=== PATIENT | male | born 1935 | race Two or more races ===

== ENCOUNTER 2017-08-27 13:39 | Inpatient (IN) | payer MEDICARE, MEDICAID ==
[2017-08-27] MEDS ORDERED: NS 0.9% 1000 ML* 1,000 ML IV ONE (16:06)
[2017-08-27 16:26] LABS: Hematocrit 36 % (42-52); Hemoglobin 12.1 g/dl (14.0-18.0); Mean Corpuscular HGB Conc 34 g/dl (31-36); Mean Corpuscular Hemoglobin 32 pg (27-31); Mean Corpuscular Volume 95 fL (80-94); Mean Platelet Volume 8 um3 (7.4-10.4); Red Blood Count 3.81 10^6/ul (4.0-5.4); Red Cell Distribution Width 14 % (10.5-15); White Blood Count 7.9 10^3/ul (3.5-10.8)
[2017-08-27 16:47] LABS: Troponin I 0.04 ng/mL (<0.04)
[2017-08-27 16:48] LABS: BUN/Creatinine Ratio 19.3 (8-20); C Reactive Protein 1.39 mg/L (< 5.00); Calcium 9.6 mg/dL (8.6-10.3); EGFR African American 65.1 (>60); EGFR Non-African American 50.6 (>60); Globulin 3.2 g/dL (2-4); Magnesium 1.9 mg/dL (1.9-2.7); Total Bilirubin 0.3 mg/dL (0.2-1.0); Total Protein 7.2 g/dL (6.4-8.9)
[2017-08-27 16:49] LABS: Potassium 5.8 mmol/L (3.5-5.0)
[2017-08-27] MEDS ORDERED: Ondansetron INJ* 2 MG/ML VIAL IV SCH (17:00)
[2017-08-27 17:18] LABS: TSH (Thyroid Stimulating Horm) 2.2 mcIU/mL (0.34-5.60)
[2017-08-27] MEDS ORDERED: Dextrose 50% VIAL 50 ml IV PRN (17:19)
[2017-08-27] MEDS ORDERED: Insulin REGULAR(*) 1 UNITS UNIT IV PUSH ONE (17:19)
[2017-08-27] MEDS ORDERED: Dextrose 50% Syringe 50 ML* 25 GM/50 ML SYRINGE IV PUSH ONE (18:00)
[2017-08-27 19:10] LABS: Urine Bilirubin Negative (Negative); Urine Glucose 1+(50 mg/dL) (Negative); Urine Nitrite Negative (Negative)
[2017-08-27 19:35] LABS: Troponin I 0.04 ng/mL (<0.04)
[2017-08-27 19:38] LABS: Potassium 4.5 mmol/L (3.5-5.0)
[2017-08-27] MEDS ORDERED: Albuterol HFA INHALER* 8 gm MDI INH PRN (22:29)
[2017-08-27] MEDS ORDERED: Melatonin (NF) 3 MG TAB PO PRN (22:33)
[2017-08-27] MEDS ORDERED: Acetaminophen TAB* 325 MG PO PRN (22:33)
[2017-08-27] MEDS ORDERED: Ondansetron INJ* 2 MG/ML VIAL IV PRN (22:33)
--- NOTE | 2017-08-27 22:36 | HP ---
H&P (Free Text) History and Physical: PCP: Ricky Funk MD Cardiology: Verna Magallon MD Date/Time: 08/27/2017 2436 CC: abnormal labs HPI: Mr Velasquez is an 81YO male HX DM2,chronic diastolic HF, HTN, & HLD who was at his PCP's office today when labs revealed an elevated serum potassium for which he was referred to [facility]. He denies any complaints, specifically no chest pain, SOB, N/V, sweats, light-headedness, or palpitations. Upon arrival, his K was confirmed elevated at 5.8. His ECG while not showing peaked T-waves was notably abnormal with a biphasic T in V3 and T-wave inversions in V4-6. Troponin was 0.04. The only comparison ECG was from >10 years ago and so Verna Magallon MD cardiology was consulted who was able to find an ECG from ~1 year ago revealing the T-wave changes to be new. As such, he recommended overnight observation and he will consult in the AM. PMedHx DM2 chronic diastolic HF HTN HLD DVT off anticoagulation ARTEMIO glaucoma BPH L Espinoza's palsy Ambulatory Orders Brimonidine P 0.15%(NF) [Alphagan P 0.15%(NF)] 1 drop BOTH EYES BEDTIME Cyanocobalamin INJ * [Vitamin B12 INJ *] 1,000 mcg IM MONTHLY 03/05/14 Lisinopril TAB* [Prinivil TAB 10 MG*] 10 mg PO DAILY 03/05/14 Pilocarpine 4% OPTH.MINERVA* 1 drop BOTH EYES QID 03/05/14 Tamsulosin CAP* [Flomax CAP*] 0.4 mg PO DAILY 03/05/14 metFORMIN* [Glucophage 1000 MG TAB *] 1,000 mg PO 0800,1700 03/05/14 Budesonide/Formote 160/4.5(NF) [Symbicort 160/4.5 (NF)] 2 puff INH BID 09/25/16 Multiple Vitamins W/ Minerals [Multivitamin Men] 1 tab PO DAILY 09/25/16 Potassium Chlor TAB* [Potassium Chlor TAB 20 MEQ*] 20 meq PO DAILY 09/25/16 Travoprost Z 0.004% OPHTH (NF) [Travatan Z 0.004% OPTH (NF)] 1 drop BOTH EYES BEDTIME 09/25/16 Albuterol inh POWDER (NF) [Proair Respiclick] 2 puff INH Q6H PRN 08/27/17 Carbonyl Iron [Ferretts Chewable Iron] 325 mg PO BID 08/27/17 Chlorthalidone TAB* [Hygroton TAB*] 12.5 mg PO .3 TIMES A WEEK 08/27/17 Magnesium Oxide TAB* [MagOx 400 TAB*] 400 mg PO DAILY 08/27/17 Spironolactone TAB* [Aldactone TAB*] 25 mg PO DAILY 08/27/17 Allergies Atorvastatin [From Lipitor] Adverse Reaction (Intermediate, Verified 03/08/14 08 :18) GI Upset PSurgHx B TKA OU cataract extractions SocHx: denies tobacco and recreational drugs, rare alcohol; lives with his ; retired corporate accountant; full code status FamHx: positive for HTN, HLD, DM2 ROS: as above, otherwise reviewed and all were negative vitals: Vital Signs Temp 36.6 C 08/28/17 00:14 Pulse 63 08/28/17 00:14 Resp 18 08/28/17 00:14 BP 133/74 08/28/17 00:14 Pulse Ox 99 08/28/17 00:14 Intake & Output 08/27/17 08/27/17 08/28/17 11:59 23:59 11:59 Weight 102.058 kg Constitutional: NAD, normally developed, obese [place] male HEENM: atraumatic; sclera/conjunctiva: non-icteric/mod-sev B injection; blephara : prominent L blepharospasm; hearing: clinically mod/sev decreased; oropharynx: clear, mucosa moist Neck: soft tissue: non-tender; thyroid: normal Pulmonary: clear to auscultation bilaterally, good aeration, no accessory muscle use CV: RR/RR, normal S1S2, no carotid bruit, no jugular venous distention, 2+ B DP/ PT, 1+ RLE/1-2+ LLE edema Abdominal: soft, non-distended, non-tender, no rebound/guarding/rigidity, normoactive bowel sounds, no hepatosplenomegaly or masses, no costovertebral angle tenderness Musculoskeletal: general: grossly intact Integumental: normal appearance and texture of exposed skin Psychiatric orientation: AA&O to PPS affect: calm mood: cooperative eye contact: fair to good content: reliable responses: timely insight: good Testing: Lab Results 08/27/17 08/27/17 08/27/17 Range/Units 16:07 16:07 18:55 WBC 7.9 (3.5-10.8) 10^3/ul RBC 3.81 L (4.0-5.4) 10^6/ul Hgb 12.1 L (14.0-18.0) g/dl Hct 36 L (42-52) % MCV 95 H (80-94) fL MCH 32 H (27-31) pg MCHC 34 (31-36) g/dl RDW 14 (10.5-15) % Plt Count 221 (150-450) 10^3/ul MPV 8 (7.4-10.4) um3 Neut % (Auto) 55.9 (38-83) % Lymph % (Auto) 30.5 (25-47) % [place] % (Auto) 8.8 (1-9) % Eos % (Auto) 4.3 (0-6) % Baso % (Auto) 0.5 (0-2) % Absolute Neuts (auto) 4.4 (1.5-7.7) 10^3/ul Absolute Lymphs (auto) 2.4 (1.0-4.8) 10^3/ul Absolute Monos (auto) 0.7 (0-0.8) 10^3/ul Absolute Eos (auto) 0.3 (0-0.6) 10^3/ul Absolute Basos (auto) 0 (0-0.2) 10^3/ul Absolute Nucleated RBC 0 10^3/ul Nucleated RBC % 0 Sodium 137 (133-145) mmol/L Potassium 5.8 H (3.5-5.0) mmol/L Chloride 109 (101-111) mmol/L Carbon Dioxide 24 (22-32) mmol/L Anion Gap 4 (2-11) mmol/L BUN 26 H (6-24) mg/dL Creatinine 1.35 H (0.67-1.17) mg/dL Est GFR ( Amer) 65.1 (>60) Est GFR (Non-Af Amer) 50.6 (>60) BUN/Creatinine Ratio 19.3 (8-20) Glucose 91 (70-100) mg/dL POC Glucose (mg/dL) (70-100) mg/dL Calcium 9.6 (8.6-10.3) mg/dL Magnesium 1.9 (1.9-2.7) mg/dL Total Bilirubin 0.30 (0.2-1.0) mg/dL AST 18 (13-39) U/L ALT 15 (7-52) U/L Alkaline Phosphatase 39 (34-104) U/L Troponin I 0.04 H* (<0.04) ng/mL C-Reactive Protein 1.39 (< 5.00) mg/L Total Protein 7.2 (6.4-8.9) g/dL Albumin 4.0 (3.2-5.2) g/dL Globulin 3.2 (2-4) g/dL Albumin/Globulin Ratio 1.3 (1-3) TSH 2.20 (0.34-5.60) mcIU/mL Urine Color Straw Urine Appearance Clear Urine pH 5.0 (5-9) Ur Specific [place] 1.011 (1.010-1.030) Urine Protein Negative (Negative) Urine Ketones Negative (Negative) Urine Blood Negative (Negative) Urine Nitrate Negative (Negative) Urine Bilirubin Negative (Negative) Urine Urobilinogen Negative (Negative) Ur Leukocyte Esterase Negative (Negative) Urine Glucose 1+(50 mg/dl) H (Negative) 08/27/17 08/27/17 Range/Units 19:04 23:05 WBC (3.5-10.8) 10^3/ul RBC (4.0-5.4) 10^6/ul Hgb (14.0-18.0) g/dl Hct (42-52) % MCV (80-94) fL MCH (27-31) pg MCHC (31-36) g/dl RDW (10.5-15) % Plt Count (150-450) 10^3/ul MPV (7.4-10.4) um3 Neut % (Auto) (38-83) % Lymph % (Auto) (25-47) % [place] % (Auto) (1-9) % Eos % (Auto) (0-6) % Baso % (Auto) (0-2) % Absolute Neuts (auto) (1.5-7.7) 10^3/ul Absolute Lymphs (auto) (1.0-4.8) 10^3/ul Absolute Monos (auto) (0-0.8) 10^3/ul Absolute Eos (auto) (0-0.6) 10^3/ul Absolute Basos (auto) (0-0.2) 10^3/ul Absolute Nucleated RBC 10^3/ul Nucleated RBC % Sodium (133-145) mmol/L Potassium 4.5 (3.5-5.0) mmol/L Chloride (101-111) mmol/L Carbon Dioxide (22-32) mmol/L Anion Gap (2-11) mmol/L BUN (6-24) mg/dL Creatinine (0.67-1.17) mg/dL Est GFR ( Amer) (>60) Est GFR (Non-Af Amer) (>60) BUN/Creatinine Ratio (8-20) Glucose (70-100) mg/dL POC Glucose (mg/dL) 190 H (70-100) mg/dL Calcium (8.6-10.3) mg/dL Magnesium (1.9-2.7) mg/dL Total Bilirubin (0.2-1.0) mg/dL AST (13-39) U/L ALT (7-52) U/L Alkaline Phosphatase (34-104) U/L Troponin I 0.04 H* (<0.04) ng/mL C-Reactive Protein (< 5.00) mg/L Total Protein (6.4-8.9) g/dL Albumin (3.2-5.2) g/dL Globulin (2-4) g/dL Albumin/Globulin Ratio (1-3) TSH (0.34-5.60) mcIU/mL Urine Color Urine Appearance Urine pH (5-9) Ur Specific [place] (1.010-1.030) Urine Protein (Negative) Urine Ketones (Negative) Urine Blood (Negative) Urine Nitrate (Negative) Urine Bilirubin (Negative) Urine Urobilinogen (Negative) Ur Leukocyte Esterase (Negative) Urine Glucose (Negative) ECG, personally reviewed: 1st degree AV block bradycardia rate 52, biphasic T in V3 and T-wave inversions in V4-6 Impression: 81M HX DM2, chronic diastolic HF, HTN, HLD presents with asymptomatic hyperKalemia 2nd concomitant lisinopril, spironolactone, & potassium supplementation adequately managed in ED; however, with incidental finding of newly abnormal ECG and elevated troponin DIAGNOSIS & PLAN Primary abnormal ECG & elevated troponin : ? etiology : Verna Magallon MD consulted : telemetry : trend troponin : ECHO in AM : supplemental oxygen : supportive care Secondary DM2 : A1c 6.2, current : NPO after midnight : correctional insulin : hold metformin chronic diastolic HF : daily weights : strict I&Os HTN : review meds once reconciled HLD : review meds once reconciled HX DVT : off anticoagulation glaucoma : review meds once reconciled BPH : review meds once reconciled Admission Rational: observation for abnormal ECG & elevated troponin DVTp: heparin SQ Code Status: full HCP:
--- NOTE | 2017-08-27 22:38 | ED ---
Yfn Atkins Abhishek, scribed for Didier Baker MD on 08/27/17 at 2106 . Progress - Progress Note Progress Note: new t wave inversions seen on ekg, I spoke with Dr. Magallon who agreed with obs admission. pt remains asymptomatic with normalized K. troponin level stable. denies pain, i spoke with family who agrees with plan. - EKG/XRAY/CT Comments: Sinus bradycardia, 53 bpm, Abnormal T wave inversion laterally and anterior - Consult/PCP Time Called: 21:30 Consult/PCP: Dr. Magallon - Additional EKG/XRAY/Consults EKG #2: NSR Comments: t wave inversions in anteror/lateral leads. no st segment changes. Re-Evaluation - Re-Evaluation 2021 Change: Unchanged Course/Dx - Diagnoses Provider Diagnoses: Hyperkalemia, Increase troponin , Acute electrocardiogram changes - Provider Notifications Discussed Care Of Patient With: Brien Parker Instructed by Provider To: Admit As Observation The documentation as recorded by the Yfn acevedo Abhishek accurately reflects the service I personally performed and the decisions made by me, Didier Baker MD.
[2017-08-28] MEDS: NS 0.9% 1000 ML* 1,000 ML IV SCH ×2 (00:32→20:55)
[2017-08-28] MEDS: Latanoprost 0.005%* 2.5 ml BTL BOTH EYES SCH ×2 (01:26→20:30)
[2017-08-28] MEDS: Insulin LISPRO* 1 UNITS UNIT SUBCUT SCH ×6 (03:35→20:28)
[2017-08-28] MEDS: Omeprazole CAP* 20 MG PO SCH (06:16)
[2017-08-28 07:04] LABS: Troponin I 0.04 ng/mL (<0.04)
[2017-08-28 07:08] LABS: Calcium 9.5 mg/dL (8.6-10.3); EGFR African American 73.1 (>60); EGFR Non-African American 56.9 (>60)
[2017-08-28 07:12] LABS: Potassium 5.1 mmol/L (3.5-5.0)
[2017-08-28] MEDS ORDERED: Chlorthalidone TAB* 50 MG PO SCH (09:00)
[2017-08-28] MEDS: Mometasone/Formoter 200/5 MDI INH SCH ×2 (09:05→20:16)
[2017-08-28] MEDS: Docusate CAP* 100 MG PO SCH ×2 (09:18→20:27)
[2017-08-28] MEDS: Magnesium Oxide TAB* 400 MG PO SCH (09:18)
[2017-08-28] MEDS: Tamsulosin CAP* 0.4 MG PO SCH (09:18)
[2017-08-28] MEDS: Lisinopril TAB* 10 MG PO SCH (09:18)
[2017-08-28] MEDS: Spironolactone TAB* 25 MG PO SCH (09:18)
[2017-08-28] MEDS: PILOCARPINE 4% BOTH EYES SCH ×4 (09:19→20:25)
[2017-08-28] MEDS: OPTH BOTH EYES SCH ×4 (09:19→20:25)
--- NOTE | 2017-08-28 13:28 | PN ---
Cardiology Progress Note Full dictated note to follow. Pt seen and examined today 08/28/17. No complaints by the patient, he was admitted for an elevated potassium level on routine labwork. Troponins 0.04 X 3, abnormal ECG, new findings with inverted and biphasic T waves in the precordial leads. CAD risks. Renal insufficiency. Plan: myoview stress test, ordered.
--- NOTE | 2017-08-28 15:55 | ECHO ---
Patient: RENETTA PAZ [facility] Rec#: [id number] : 1935 Date: 08/28/2017 Age: 81y Height: 172.72 cm / 68.0 in Weight: 102.06 kg / 224.9 lbs Sex: M BSA: 2.15 Room#: [facility] Admit Date#: 08/27/2017 Type: Inpatient Referring: Brien Parker MD Reading: Analy Stephen MD [place]ra[place] Facilitator: Leticia Willingham RDCS,RDMS CC: ROLLY CEDILLO Transthoracic Echocardiogram Indication: Abnormal EKG BP: 129/66 HR: 61 Rhythm: NSR Findings History: CHF, HTN, HLD, DVT, DM Technical Comments: The study quality is fair. The study is technically limited due to poor parasternal windows. Left Ventricle: The left ventricular chamber size is normal. Mild concentric left ventricular hypertrophy is observed. Basal interventricular septum shows moderate thickening. Global left ventricular wall motion and contractility are within normal limits. The estimated ejection fraction is 55-60%. Abnormal left ventricular diastolic filling is observed, consistent with impaired relaxation. Left Atrium: The left atrium is mild to moderately dilated. Right Ventricle: The right ventricular chamber size and systolic function are within normal limits. Right Atrium: The right atrium is mildly dilated. Aortic Valve: The aortic valve structure is not well visualized. There is no evidence of aortic valve thickening. There is mild aortic regurgitation. There is no evidence of aortic stenosis. Mitral Valve: The mitral valve leaflets appear normal. There is no evidence of mitral regurgitation. There is no evidence of mitral stenosis. Tricuspid Valve: The tricuspid valve leaflets are normal. There is trace tricuspid regurgitation. Unable to estimate the right ventricular systolic pressure. Pulmonic Valve: The pulmonic valve structure is not well visualized. Pericardium: There is no significant pericardial effusion. Aorta: There is mild dilatation of the ascending aorta. There is no dilatation of the aortic arch. There is moderate dilatation of the aortic root. Pulmonary Artery: The main pulmonary artery is not well visualized. Venous: The inferior vena cava appears normal in size. There is a greater than 50% respiratory change in the inferior vena cava dimension. Conclusions Mild concentric left ventricular hypertrophy is observed. Global left ventricular wall motion and contractility are within normal limits. The estimated ejection fraction is 55-60%. Abnormal left ventricular diastolic filling is observed, consistent with impaired relaxation. The right ventricular chamber size and systolic function are within normal limits. There is mild aortic regurgitation. There is trace tricuspid regurgitation. There is mild dilatation of the ascending aorta, 3.6 cm. Compared with prior echo of 09/14/16, no significant changes. Measurements Name Value Normal Range RVIDd (AP) 2D 2.5 cm (0.9 - 2.6) RVDdMajor (2D) 3.3 cm (2.2 - 4.4) RAd ISD 4CH 5.6 cm (3.4 - 4.9) RA (A4C)W 3.3 cm (2.9 - 4.6) IVSd (2D) 1.8 cm (0.6 - 1) LVPWd (2D) 1.3 cm (0.6 - 1) LVIDd (2D) 3.8 cm (3.6 - 5.4) LVIDs (2D) 2 cm - LV FS (2D) 46 % (25 - 45) Aortic Annulus 2.5 cm (1.4 - 2.6) Ao root diameter (2D) 4.3 cm (2.1 - 3.5) Ascending Ao 3.6 cm (2.1 - 3.4) Aortic arch 3.4 cm (1.8 - 3.4) LA dimension (AP) 2D 2.9 cm (2.3 - 3.8) LAd ISD 4CH 6.4 cm (2.9 - 5.3) LA ISD 4CH W 4.6 cm (2.5 - 4.5) Name Value Normal Range LA ESV SP 4CH (A/L) 53.51 ml - LA ESV SP 2CH (A/L) 60.17 ml - LA ESV BP (A/L) 64.23 ml - LA ESV BP (A/L) index 30 ml/m2 - LA ESV SP 4CH (MOD) 50.62 ml - LA ESV SP 2CH (MOD) 55.94 ml - Name Value Normal Range MV E-wave Vmax 0.6 m/sec - MV deceleration time 244 msec - MV A-wave Vmax 0.8 m/sec - MV E:A ratio 0.8 ratio - P. vein S-wave Vmax 0.5 m/sec - P. vein D-wave Vmax 0.2 m/sec - P. vein S:D Vmax ratio 2.1 ratio - P. vein A-wave duration 90 msec - LV septal e' Vmax 0.04 m/sec - LV lateral e' Vmax 0.05 m/sec - LV E:e' septal ratio 15 ratio - LV E:e' lateral ratio 12 ratio - Name Value Normal Range AV Vmax 1.4 m/sec - AV VTI 26 cm - AV peak gradient 8 mmHg - AV mean gradient 3.8 mmHg - LVOT Vmax 1.1 m/sec - LVOT VTI 24.2 cm - LVOT peak gradient 5 mmHg - LVOT mean gradient 2.6 mmHg - BELINDA Vmax 0.4 m/sec - Name Value Normal Range RAP 8 mmHg - IVC diameter 1.6 cm - Name Value Normal Range PV Vmax 0.5 m/sec - PV peak gradient 1 mmHg -
[2017-08-28] MEDS ORDERED: Brimonidine P 0.15%(NF) OPH SOL 5 ML BTL BOTH EYES SCH (21:00)
--- NOTE | 2017-08-28 21:48 | PN ---
Subjective Date of Service: 08/28/17 Interval History: Pt without complaint. Denies chest pain or SOB. Attests Dr. Magallon had cut his chlorthalidone to 12.5mg MWF from 25mg since circa Sep 2016. Has had multiple BMPs since without hyperkalemia. Never smoker, living in [place] with w/ son and daughter in law. Trops 0.04, 0.04, 0.04. Objective Active Medications: Acetaminophen (Tylenol Tab*) 650 mg PO Q6H PRN PRN Reason: FEVER/PAIN Albuterol (Ventolin Hfa Inhaler*) 2 puff INH Q6H PRN PRN Reason: SHORTNESS OF BREATH Last Admin: 08/28/17 20:23 Dose: 2 puff Brimonidine Tartrate (Alphagan P 0.15%(Nf)) 1 drop BOTH EYES BEDTIME COUNTS INCLUDE 234 BEDS AT THE [facility] Last Admin: 08/28/17 20:29 Dose: Not Given Chlorthalidone (Hygroton Tab*) 12.5 mg PO MoWeFr@0900 COUNTS INCLUDE 234 BEDS AT THE [facility] Last Admin: 08/28/17 09:18 Dose: 12.5 mg Docusate Sodium (Colace Cap*) 200 mg PO BID COUNTS INCLUDE 234 BEDS AT THE [facility] Last Admin: 08/28/17 20:27 Dose: Not Given Sodium Chloride (Ns 0.9% 1000 Ml*) 1,000 mls @ 50 mls/hr IV PER RATE COUNTS INCLUDE 234 BEDS AT THE [facility] Last Admin: 08/28/17 20:55 Dose: 50 mls/hr Insulin Human Lispro (Humalog*) 0 units SUBCUT FS Q4 ICU JOSE PRN Reason: Protocol Last Admin: 08/28/17 20:28 Dose: 1 unit Latanoprost (Xalatan 0.005%*) 1 drop BOTH EYES BEDTIME JOSE PRN Reason: Protocol Last Admin: 08/28/17 20:30 Dose: 1 drop Lisinopril (Prinivil Tab*) 10 mg PO DAILY COUNTS INCLUDE 234 BEDS AT THE [facility] Last Admin: 08/28/17 09:18 Dose: 10 mg Magnesium Oxide (Magox 400 Tab*) 400 mg PO DAILY COUNTS INCLUDE 234 BEDS AT THE [facility] Last Admin: 08/28/17 09:18 Dose: 400 mg Melatonin (Melatonin (Nf)) 3 mg PO BEDTIME PRN; Protocol PRN Reason: Sleep Mometasone Furoate/Formoterol Fumar (Dulera 200/5 Mdi*) 2 puff INH BID JOSE PRN Reason: Protocol Last Admin: 08/28/17 20:16 Dose: 2 puff Omeprazole (Prilosec Cap*) 20 mg PO DAILY@0600 COUNTS INCLUDE 234 BEDS AT THE [facility] Last Admin: 08/28/17 06:16 Dose: 20 mg Ondansetron HCl (Zofran Inj*) 4 mg IV Q6H PRN PRN Reason: NAUSEA Pilocarpine HCl (Pilocarpine 4% Opth.Shani*) 1 drop BOTH EYES QID COUNTS INCLUDE 234 BEDS AT THE [facility] Last Admin: 08/28/17 20:25 Dose: 1 drop Spironolactone (Aldactone Tab*) 25 mg PO DAILY COUNTS INCLUDE 234 BEDS AT THE [facility] Last Admin: 08/28/17 09:18 Dose: 25 mg Tamsulosin HCl (Flomax Cap*) 0.4 mg PO DAILY COUNTS INCLUDE 234 BEDS AT THE [facility] Last Admin: 08/28/17 09:18 Dose: 0.4 mg Vital Signs 08/28/17 08/28/17 08/28/17 15:28 19:31 20:18 Temperature 98.1 F 98.0 F Pulse Rate 59 64 Respiratory 16 20 Rate Blood Pressure 108/53 118/65 (mmHg) O2 Sat by Pulse 99 98 98 Oximetry Oxygen Devices in Use Now: None Appearance: NAD Eyes: No Scleral Icterus, PERRLA Ears/Nose/Mouth/Throat: Mucous Membranes Moist Neck: NL Appearance and Movements; NL JVP Respiratory: Symmetrical Chest Expansion and Respiratory Effort, Clear to Auscultation Cardiovascular: NL Sounds; No Murmurs; No JVD, RRR, No Edema Abdominal: NL Sounds; No Tenderness; No Distention Extremities: No Edema, No Clubbing, Cyanosis Skin: No Rash or Ulcers, No Nodules or Sclerosis Neurological: Alert and Oriented x 3, NL Sensation, NL Muscle Strength and Tone Result Diagrams: 08/27/17 16:07 08/28/17 05:39 Additional Lab and Data: ALLERGIES Atorvastatin [From Lipitor] Adverse Reaction (Intermediate, Verified 03/08/14 08 :18) GI Upset Laboratory Results - last 24 hr 08/27/17 08/28/17 08/28/17 23:05 03:18 05:39 Sodium 138 Potassium 5.1 H Chloride 108 Carbon Dioxide 24 Anion Gap 6 BUN 22 Creatinine 1.22 H Est GFR ( Amer) 73.1 Est GFR (Non-Af Amer) 56.9 BUN/Creatinine Ratio 18.0 Glucose 96 POC Glucose (mg/dL) 190 H 105 H Calcium 9.5 Troponin I 0.04 H* 08/28/17 08/28/17 08/28/17 06:17 12:10 16:19 Sodium Potassium Chloride Carbon Dioxide Anion Gap BUN Creatinine Est GFR ( Amer) Est GFR (Non-Af Amer) BUN/Creatinine Ratio Glucose POC Glucose (mg/dL) 115 H 161 H 164 H Calcium Troponin I 08/28/17 19:28 Sodium Potassium Chloride Carbon Dioxide Anion Gap BUN Creatinine Est GFR ( Amer) Est GFR (Non-Af Amer) BUN/Creatinine Ratio Glucose POC Glucose (mg/dL) 140 H Calcium Troponin I Assess/Plan/Problems-Billing Assessment: 81 yo male PMH DM, HTN, diastolic CHF, DVT (no a/c) p/w hypkalemic 5.8 on outpatient labs along with new anterolateral TWI. Chest pain free. Trop 0.04 x3. Nuclear stress test. - Patient Problems (1) T wave inversion in EKG Current Visit: Yes Status: Acute Code(s): R94.31 - ABNORMAL ELECTROCARDIOGRAM [ECG] [EKG] SNOMED Code(s): 86957432 Comment: appreciate cardiology recs (2) Diastolic CHF Current Visit: Yes Status: Acute Code(s): I50.30 - UNSPECIFIED DIASTOLIC ( CONGESTIVE) HEART FAILURE SNOMED Code(s): 655068536 Comment: continue chlorithalidone 12.5mg MWF, spironolactone 25mg daily, lisinopril 10mg daily. not in acute exaccerbation ECHO repeated on admission, no significant changes; diastolic dysfunction, preserved EF. (3) Hyperkalemia Current Visit: Yes Status: Acute Code(s): E87.5 - HYPERKALEMIA SNOMED Code (s): 13949798 Comment: improved, hold home potassium supplements. (4) HTN (hypertension) Current Visit: Yes Status: Acute Code(s): I10 - ESSENTIAL (PRIMARY) HYPERTENSION SNOMED Code(s): 71821394 Comment: spironolacton 12.5mg, lisinopril 10mg, chlorithalidone 12.5mg MWF (5) Diabetes Current Visit: Yes Status: Acute Code(s): E11.9 - TYPE 2 DIABETES MELLITUS WITHOUT COMPLICATIONS SNOMED Code(s): 15275009 Comment: a1c 6.3% hold home metformin 1000mg BID POCT qac hs Status and Disposition: medicine inpatient, likely d/c 08/29 if normal nuclear stress test. Attending: Thony Palumbo
--- NOTE | 2017-08-28 22:16 | CONS ---
CC: Dr. Marly Funk; Dr. Magallon; Hospitalist Service* CONSULTATION REPORT: DATE OF CONSULT: 08/28/17 REASON FOR CONSULT: Abnormal ECG and elevated troponins. CHIEF COMPLAINT: Hyperkalemia. HISTORY OF PRESENT ILLNESS: Mr. Velasquez is a very nice 81-year-old gentleman followed by my partner, Dr. Magallon with a history of PACs, supraventricular tachycardia, diastolic heart failure as well as multiple atherosclerotic risks. The patient states he had seen Dr. Funk, who had ordered routine lab work and his potassium came back quite elevated, so she called him to present to the emergency room. In the emergency room, his EKG was abnormal and his initial troponin was 0.04 and were at stayed for 3 troponin checks. The patient denies any recent chest pain, pressure, heaviness, orthopnea, or PND. He continues to workout on a stationary bicycle regularly and had no decline in his functional ability. The patient denies any palpitations or racing of the heart and he slept well overnight and has no new complaints today. PAST MEDICAL HISTORY: The patient has a past medical history of: 1. Supraventricular tachycardia. 2. Diastolic congestive heart failure. 3. Hypertension. 4. Type 2 diabetes. 5. Dyslipidemia. 6. Centripetal obesity. 7. DVT in 2011 following trauma. 8. Obstructive sleep apnea. 9. Glaucoma. 10. Benign prostatic hypertrophy. 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 12. Pulmonary disease, mild restriction and diffusion impairment on pulmonary function studies. 13. Mild coronary artery disease, cath in 2005 showed nonobstructive coronary disease on medical management. 14. Hard of hearing. 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 16. B12 deficiency. 17. Anemia. 18. Renal insufficiency. PAST SURGICAL HISTORY: Cataract surgery, left knee replacement in 2003, left knee replacement in 2005, right sinus surgery. MEDICATIONS: Current inpatient medications include: 1. Tylenol p.r.n. 2. Ventolin inhaler. 3. Alphagan ophthalmic drops. 4. Chlorthalidone tablets 12.5 mg Saturday, Saturday, and Saturday. 5. Colace 200 mg b.i.d. 6. Humulin lispro insulin. 7. Xalatan ophthalmic drops. 9. Prinivil 10 mg a day. 10. Magnesium oxide 400 mg a day. 11. Melatonin 3 mg q.h.s. 12. Dulera 2 puffs b.i.d. 13. Prilosec 20 mg a day. 14. Zofran p.r.n. 15. [place] ophthalmic drops. 16. Aldactone 25 mg a day. 17. Flomax 0.4 mg a day. (The patient on spironolactone over a year based on outpatient notes of Dr. Magallon's). ALLERGIES: Include ATORVASTATIN. FAMILY HISTORY: The patient's father at 98 years of age. The patient's mother with a history of pancreatic cancer. He has 6 siblings, 1 bother with a bypass surgery at age 60. He is a retired entry level accountant, never smoked, rare alcohol. No recreational drugs. PHYSICAL EXAMINATION: On exam, the patient is 5 feet, weighs 234 pounds with a BMI of 36. Vitals: Blood pressure has ranged from 99/59 to 132/58, pulse is 55 and regular, respiratory rate is 20, oxygen saturation is 96%, temperature is 98.0. General Appearance: Centripetally obese, elderly gentleman, lying at 20 degrees, appearing in no acute distress. Psychologically, calm, cooperative , pleasant. Neurologically, he is hard of hearing, but when he hears, his comprehension is good. Speech is appropriate. He follows commands well. Skin : Dark complexion. No evidence of cyanosis. No rashes or other lesions. HEENT : Pupils are equal and round. Mucous membranes moist. Neck: Overweight, but no appreciable increased JVP. Mandibular glands prominent, but no thyromegaly, palpable carotid pulses without bruits. Respirations: He had some rhonchi and mild wheezing in the right that completely cleared with coughing. Coronary: S1 , S2 regular without murmurs or rubs. Abdomen: Overweight, active bowel sounds. No epigastric discomfort. No appreciable hepatomegaly. Lower extremities were warm without significant edema. DIAGNOSTIC STUDIES/LAB DATA: A 12-lead ECG in the emergency department yesterday showed sinus rhythm at 57 beats per minute, QRS axis of +30, normal AV and IV conduction times, and he has biphasic and inverted T-waves across the precordial leads. Repeat EKG in the ED was similar and when these EKGs are compared with the patient's old EKGs of 2005, the most recent in the [facility] system, the inverted T-waves are new. The patient's white count 7.9, hemoglobin 12.1, hematocrit 36, mean cell volume 95, platelets 221. Initial labs, sodium 137, potassium 5.8, chloride 109, BUN 26, creatinine 1.35. Repeat potassium yesterday was 4.5. Electrolytes today, sodium 138, potassium 5.1, chloride 108, bicarb 24, BUN 22, creatinine 1.22, glucose 96 as high as 190, ALT of 18, AST 15. Troponin #1 0.04, troponin #2 0.04, troponin #3 0.04. C-reactive protein 1.39. TSH 2.20. Urinalysis, 1+ glucose, pH 5, specific gravity 1.011. Echocardiogram done today showed mild left ventricular hypertrophy, normal wall motion with an ejection fraction of 55% to 60% with abnormal diastolic filling. Mild aortic insufficiency. Trace tricuspid insufficiency and the ascending aorta was mildly dilated at 3.6 cm. Past outpatient studies include a Holter monitor from February 2016 showing frequent PVCs approximately 12,000, nonsustained supraventricular tachycardia up to 5 beats at 125 beats a minute. Stress test from March 2014, dobutamine stress echo showed no inducible ischemia. Chemical stress test from 09/26/16 at [facility] was considered low risk with an ejection fraction of 56% and no perfusion defects, normal study. IMPRESSION AND PLAN: In summary, Mr. Velasquez is a very nice 81-year-old patient admitted because of hyperkalemia with EKG changes in the anterior wall that were abnormal and new and concerning for ischemia and there would be a differential of silent ischemia, which is a risk for with his diabetes or changes related to his potassium levels. As the patient's potassium on repeat normalized, it is possible that yesterday and today's high levels are related to hemolysis. I have arranged for a stress test to be performed to evaluate the patient for his abnormal ECG and borderline elevation in troponins, although they are even and this may represent a cross-reacting protein as well. Further recommendations will be made, pending the results of the stress test and his clinical course. Regarding his hyperkalemia, if it is felt to be real, we may want to decrease his Aldactone to 3 days a week, which would decrease his risk of hyperkalemia, consideration could be made to alternate it with the loop diuretics such as Lasix or Demadex. [id number] #: [id number] MTDD
[2017-08-29] MEDS: Insulin LISPRO* 1 UNITS UNIT SUBCUT SCH ×4 (01:01→12:06)
[2017-08-29] MEDS: Omeprazole CAP* 20 MG PO SCH (05:34)
[2017-08-29 06:41] LABS: BUN/Creatinine Ratio 15.1 (8-20); Calcium 9.4 mg/dL (8.6-10.3); EGFR African American 70.5 (>60); EGFR Non-African American 54.8 (>60); Magnesium 1.6 mg/dL (1.9-2.7)
--- NOTE | 2017-08-29 07:16 | ED ---
Sergio Atkins Benjamin, scribed for Augustine Faustin MD on 08/27/17 at 1615 . Complex/Multi-Sys Presentation - HPI Summary HPI Summary: 81yo male sent from Dr. Funk's office after a routine visit showed high K+ in blood. Pt denies CP, SOB. Pt is asymptomatic. - History Of Current Complaint Chief Complaint: EDGeneral Time Seen by Provider: 08/27/17 15:44 Hx Obtained From: Patient Severity Currently: None Location: Negative - Allergies/Home Medications Allergies/Adverse Reactions: Allergies Allergy/AdvReac Type Severity Reaction Status Date / Time Atorvastatin [From Lipitor] AdvReac Intermediate GI Upset Verified 03/08/14 08: 18 Home Medications: Home Medications Albuterol inh POWDER (NF) [Proair Respiclick] 2 puff INH Q6H PRN 08/27/17 [ History Confirmed 08/27/17] Carbonyl Iron [Ferretts Chewable Iron] 325 mg PO BID 08/27/17 [History Confirmed 08/27/17] Chlorthalidone TAB* [Hygroton TAB*] 12.5 mg PO .3 TIMES A WEEK 08/27/17 [ History Confirmed 08/27/17] Magnesium Oxide TAB* [MagOx 400 TAB*] 400 mg PO DAILY 08/27/17 [History Confirmed 08/27/17] Spironolactone TAB* [Aldactone TAB*] 25 mg PO DAILY 08/27/17 [History Confirmed 08/27/17] PMH/Surg Hx/FS Hx/Imm Hx Endocrine/Hematology History: Reports: Hx Diabetes Cardiovascular History: Reports: Hx Coronary Artery Disease, Hx Hypercholesterolemia, Hx Hypertension, Hx Valvular Heart Disease Denies: Hx Angina, Hx Myocardial Infarction, Hx Pacemaker/ICD Respiratory History: Reports: Hx Asthma Sensory History: Reports: Hx Hearing Aid Psychiatric History: Denies: Hx Panic Disorder - Surgical History Surgery Procedure, Year, and Place: CATARACTS,. LASER EYE SURGERY FOR GLAUCOMA. SINUS SURGERY. RT AND LT KNEE REPLACEMENTS Infectious Disease History: No Infectious Disease History: Denies: Traveled Outside the [place] in Last 30 Days - Family History Known Family History: Positive: Cardiac Disease, Hypertension - Social History Alcohol Use: None Substance Use Type: Reports: None Smoking Status (MU): Never Smoked Tobacco Review of Systems Constitutional: Negative Eyes: Negative ENT: Negative Cardiovascular: Negative Respiratory: Negative Gastrointestinal: Negative Genitourinary: Negative Musculoskeletal: Negative Skin: Negative Neurological: Negative Psychological: Normal All Other Systems Reviewed And Are Negative: Yes Physical Exam - Summary Physical Exam Summary: VITAL SIGNS: Reviewed. GENERAL: Patient is a well-developed and nourished male who is lying comfortable in the stretcher. Patient is not in any acute respiratory distress. HEAD AND FACE: No signs of trauma. No ecchymosis, hematomas or skull depressions. No sinus tenderness. EYES: PERRLA, EOMI x 2, No injected conjunctiva, no nystagmus. EARS: Hearing grossly intact. Ear canals and tympanic membranes are within normal limits. MOUTH: Oropharynx within normal limits. NECK: Supple, trachea is midline, no adenopathy, no JVD, no carotid bruit, no c- spine tenderness, neck with full ROM. CHEST: Symmetric, no tenderness at palpation LUNGS: Clear to auscultation bilaterally. No wheezing or crackles. CVS: Regular rate and rhythm, S1 and S2 present, no murmurs or gallops appreciated. ABDOMEN: Soft, non-tender. No signs of distention. No rebound no guarding, and no masses palpated. Bowel sounds are normal. EXTREMITIES: FROM in all major joints, no edema, no cyanosis or clubbing. NEURO: Alert and oriented x 3. No acute neurological deficits. Speech is normal and follows commands. SKIN: Dry and warm Triage Information Reviewed: Yes Vital Signs On Initial Exam: Initial Vitals Temp Pulse Resp BP Pulse Ox 97.5 F 69 20 133/85 96 08/27/17 13:42 08/27/17 13:42 08/27/17 13:42 08/27/17 13:42 08/27/17 13:42 Vital Signs Reviewed: Yes - [place] Coma Scale Coma Scale Total: 15 Diagnostics - Vital Signs Vital Signs Temp Pulse Resp BP Pulse Ox 08/27/17 13:42 97.5 F 69 20 133/85 96 - Laboratory Lab Results: Lab Results 08/27/17 08/27/17 Range/Units 16:07 16:07 WBC 7.9 (3.5-10.8) 10^3/ul RBC 3.81 L (4.0-5.4) 10^6/ul Hgb 12.1 L (14.0-18.0) g/dl Hct 36 L (42-52) % MCV 95 H (80-94) fL MCH 32 H (27-31) pg MCHC 34 (31-36) g/dl RDW 14 (10.5-15) % Plt Count 221 (150-450) 10^3/ul MPV 8 (7.4-10.4) um3 Neut % (Auto) 55.9 (38-83) % Lymph % (Auto) 30.5 (25-47) % [place] % (Auto) 8.8 (1-9) % Eos % (Auto) 4.3 (0-6) % Baso % (Auto) 0.5 (0-2) % Absolute Neuts (auto) 4.4 (1.5-7.7) 10^3/ul Absolute Lymphs (auto) 2.4 (1.0-4.8) 10^3/ul Absolute Monos (auto) 0.7 (0-0.8) 10^3/ul Absolute Eos (auto) 0.3 (0-0.6) 10^3/ul Absolute Basos (auto) 0 (0-0.2) 10^3/ul Absolute Nucleated RBC 0 10^3/ul Nucleated RBC % 0 Sodium 137 (133-145) mmol/L Potassium 5.8 H (3.5-5.0) mmol/L Chloride 109 (101-111) mmol/L Carbon Dioxide 24 (22-32) mmol/L Anion Gap 4 (2-11) mmol/L BUN 26 H (6-24) mg/dL Creatinine 1.35 H (0.67-1.17) mg/dL Est GFR ( Amer) 65.1 (>60) Est GFR (Non-Af Amer) 50.6 (>60) BUN/Creatinine Ratio 19.3 (8-20) Glucose 91 (70-100) mg/dL Calcium 9.6 (8.6-10.3) mg/dL Magnesium 1.9 (1.9-2.7) mg/dL Total Bilirubin 0.30 (0.2-1.0) mg/dL AST 18 (13-39) U/L ALT 15 (7-52) U/L Alkaline Phosphatase 39 (34-104) U/L Troponin I 0.04 H* (<0.04) ng/mL C-Reactive Protein 1.39 (< 5.00) mg/L Total Protein 7.2 (6.4-8.9) g/dL Albumin 4.0 (3.2-5.2) g/dL Globulin 3.2 (2-4) g/dL Albumin/Globulin Ratio 1.3 (1-3) TSH 2.20 (0.34-5.60) mcIU/mL Result Diagrams: 08/27/17 16:07 08/29/17 05:58 Lab Statement: Any lab studies that have been ordered have been reviewed, and results considered in the medical decision making process. - EKG 1549. Cardiac Rate: Bradycardia - 57bpm EKG Rhythm: Sinus Bradycardia EKG Interpretation: T wave inversion at I, avL, V4,5, and 6. Re-Evaluation - Re-Evaluation First Eval Re-Evaluation Time: 18:37 Comment: Pt has been informed about his lab findings, and was also informed that he will be signed out to the next provider. Complex Multi-Symp Course/Dx Assessment/Plan: In the ED course an IV access was obtained. Patient was placed in a cardiac care unit nurse. Patient was started with IV fluids. Labs without any significant abnormality except for Chronic anemia, and renal insufficiency. Potasium 5.8. In the ED course patient was hydrated and he was given Calcium, Dextrose and Insulin for the hyperkalemia. I discussed the case Nereida Castellanos [employer] from the hospitalist services and she will consult of the patient. I will repeat the Potassium and troponin level. I will sign out at shift change too Dr. Baker to f/u recheck potassium and troponin and f/u hospitality recommendations. Patient is hemodynamically stable and alert and oriented x 3. Pt will be signed out to the next ED physician, pending repeat labs. - Diagnoses Provider Diagnoses: Hyperkalemia, Increase troponin , Acute electrocardiogram changes Discharge - Discharge Plan Condition: Stable Disposition: ADMITTED TO [facility] The documentation as recorded by the Sergio acevedo Benjamin accurately reflects the service I personally performed and the decisions made by me, Augustine Faustin MD.
[2017-08-29] MEDS ORDERED: Influenza VAC *QUAD* 2017-18* 0.5 ML SYRINGE IM ONE (09:00)
[2017-08-29] MEDS: Mometasone/Formoter 200/5 MDI INH SCH (09:39)
[2017-08-29] MEDS ORDERED: Regadenoson* 0.4 MG/5 ML SYRINGE ONE (10:47)
[2017-08-29] MEDS: Lisinopril TAB* 10 MG PO SCH (11:34)
[2017-08-29] MEDS: Docusate CAP* 100 MG PO SCH (11:34)
[2017-08-29] MEDS: Tamsulosin CAP* 0.4 MG PO SCH (11:34)
[2017-08-29] MEDS: Magnesium Oxide TAB* 400 MG PO SCH (11:35)
[2017-08-29] MEDS: PILOCARPINE 4% BOTH EYES SCH (11:35)
[2017-08-29] MEDS: Spironolactone TAB* 25 MG PO SCH (11:35)
[2017-08-29] MEDS: OPTH BOTH EYES SCH (11:35)
--- NOTE | 2017-08-29 11:45 | RAD ---
Edited for charges. INDICATION: Elevated troponins with multiple cardiac risk factors COMPARISON: Similar examination dated September 28, 2016 TECHNIQUE: SPECT imaging was performed. Rest images were acquired following the intravenous injection of 10.6 millicuries of technetium 99m tetrofosmin at 0640 hours. At 0956 hours stress images were acquired following the intravenous administration of 25.54 millicuries of technetium 99m tetrofosmin. The patient received intravenous Lexiscan prior to the stress image acquisition. FINDINGS: On the CT imaging there is moderate cardiomegaly similar in appearance to the prior examination. There are no defects of the stress-induced or fixed nature. The cardiac chamber size is normal. There are no wall motion abnormalities. The ejection fraction is calculated at 55% during stress. IMPRESSION: No scintigraphic evidence of ischemia or infarction. ASSESSMENT: Low risk Based on imaging criteria from ACC/AHA 2002 Guideline Update for the Management of Patients With Chronic Stable Angina Table 23. Noninvasive Risk Stratification. MTDD
[2017-08-29 12:05] VITALS: BP 140/71
--- NOTE | 2017-08-30 02:52 | DS ---
DISCHARGE SUMMARY: DATE OF ADMISSION: 08/27/17 DATE OF DISCHARGE: 08/29/17 ADMITTING PROVIDER: Brien Parker MD ATTENDING PHYSICIAN: Thony Palumbo MD PRIMARY CARE PHYSICIAN: Dr. Marly Funk PRIMARY MOTOR POWER CONNECTOR: Dr. Magallon CHIEF COMPLAINT: Hyperkalemia on outpatient labs. PAST MEDICAL HISTORY: 1. Diabetes mellitus type 2. 2. Chronic diastolic CHF. 3. Hypertension. 4. Hyperlipidemia. 5. History of DVT, on no anticoagulation. 6. Obstructive sleep apnea. 7. Glaucoma. 8. BPH. 9. Left sided Espinoza's palsy. HISTORY OF PRESENT ILLNESS AND HOSPITAL COURSE: Mr. Velasquez is an 81-year-old male with PMH as above, who had elevated serum potassium drawn at primary care physician's office and was referred [place] [facility] [place] Potassium was 5.8 on repeat here. EKG did not show any peaked T waves, but he had T-wave inversions in V4 to V6 and biphasic T in V3. Troponins were indeterminate level at 0.04 and these were repeated again staying at 0.04. He received dextros and regular insulin in the emergency room with the potassium falling to 4.5 few hours later, again slightly elevated to 5.1 on morning of hospital day #2. The patient was without chest pain. Cardiology evaluated the patient, Dr. Stephen, wanted to rule out silent ischemia as a cause for potential hyperkalemia and a nuclear stress test was ordered. The patient was converted from observation status to inpatient and had the test on hospital day #3, , this was a normal exam with no scintigraphic evidence of ischemia or infarction. The patient will be discharged home with followup with Dr. Funk and Dr. Magallon. His potassium supplements 20 mEq a day will be held until repeat blood workup can be done. Potassium on day of discharge was 5.0 and now he is also on chlorthalidone 12.5 mg Saturday, Saturday, Saturday and lisinopril 10 mg daily and spironolactone [address] Stephen had recommended also potentially decreasing spironolactone to 25 mg Saturday, Saturday, Saturday as a potential option and that the hyperkalemia differential include hemolysis. DISCHARGE MEDICATIONS: Include: 1. Chlorthalidone 12.5 mg Saturday, Saturday, and Saturday. 2. Aldactone 25 mg daily. 3. Lisinopril 10 mg daily. 4. Ventolin inhaler. 5. Alphagan ophthalmic drops. 6. Tylenol p.r.n. 7. Xalatan ophthalmic drops. 8. Magnesium oxide 400 mg daily. 9. Melatonin 3 mg q.h.s. 10. Symbicort 2 puffs inhaled b.i.d. 11. Metformin 1000 mg twice a day. 12. Multivitamin tablet once daily. 13. Cyanocobalamin 1000 mcg IM monthly. 14. Ferrous chewable iron 325 mg p.o. b.i.d. 15. Tamsulosin 0.4 mg p.o. daily. 16. His eye drops are Travatan 0.004% one drop both eyes q.h.s. in addition to the already mentioned Alphagan. DISCHARGE DIET: Carbohydrate consistent, heart healthy. ACTIVITY LEVEL: No restrictions. FOLLOWUP: With Dr. Funk within 5 days of discharge and Dr. Magallon within 4 weeks. TIME SPENT: Time spent on discharge, 35 minutes. [id number]/[id number] #: [id number] [facility]
== END 2017-08-29 13:46 | disposition home or self-care (01) | DRG 641 ==
LOC: ED 13:39 → MEDTELE 23:48 → OBSVTOIN 08-28 14:27
PROVIDERS: ADMIT Hospitalist; ATTEND Internal Medicine
PROC: 5A09357 Assistance with Respiratory Ventilation, Less than 24 Consecutive Hours, Continuous Positive Airway Pressure (ICD-10-PCS; principal; 2017-08-28)
DX: E87.5 Hyperkalemia (principal); I11.0 Hypertensive heart disease with heart failure; E11.9 Type 2 diabetes mellitus without complications; I50.32 Chronic diastolic (congestive) heart failure; E78.5 Hyperlipidemia, unspecified; G47.33 Obstructive sleep apnea (adult) (pediatric); H40.9 Unspecified glaucoma; N40.0 Benign prostatic hyperplasia without lower urinary tract symptoms; Z96.653 Presence of artificial knee joint, bilateral; E66.9 Obesity, unspecified; I25.10 Atherosclerotic heart disease of native coronary artery without angina pectoris; J45.909 Unspecified asthma, uncomplicated; R40.2412 Glasgow coma scale score 13-15, at arrival to emergency department; R94.31 Abnormal electrocardiogram [ECG] [EKG]; R74.8 Abnormal levels of other serum enzymes; Z98.42 Cataract extraction status, left eye; Z86.718 Personal history of other venous thrombosis and embolism; Z79.84 Long term (current) use of oral hypoglycemic drugs; Z88.8 Allergy status to other drugs, medicaments and biological substances; Z98.41 Cataract extraction status, right eye; Z83.3 Family history of diabetes mellitus; Z82.49 Family history of ischemic heart disease and other diseases of the circulatory system; Z83.49 Family history of other endocrine, nutritional and metabolic diseases; Z68.35 Body mass index [BMI] 35.0-35.9, adult; Z97.4 Presence of external hearing-aid; Z23 Encounter for immunization; Z80.0 Family history of malignant neoplasm of digestive organs
CPT/HCPCS: 36415; 78452; 80048; 80053; 80061; 81003; 82043; 82570; 83036; 83735; 84132; 84443; 84484; 85014; 85018; 85025; 86140; 93005; 93017; 93306; 94640; 94660; 94760; A9270-GY; A9502; G0378; J0610; J2785

== ENCOUNTER 2018-02-13 17:40 | Emergency (ER) | payer MEDICARE, MEDICAID ==
--- OUTSIDE RECORDS SUMMARY | 2018-02-13 18:03 | XMS REPORT ---
:1935 External Reference #:[id number] Author Organization [facility] Address [address] [place] [address] Phone [phone] Care Team Providers Name Role Phone Marly Funk M.D. Primary Care Physician Unavailable Payers Type Date Identification Numbers Payment Provider Subscriber Medicare Primary Effective: Policy Number: Medicare - NGS Stephan Velasquez 2000 [id number] PayID: [id number] [place] [address] Medicaid Policy Number: [id number] Medicaid Stephan Velasquez PayID: [id number] [place] [address] Problems Date Description Provider Status Onset: 01/31/2015 Essential hypertension Active Onset: 01/31/2015 Pure hypercholesterolemia Active Onset: 11/29/2016 Primary open angle glaucoma of left Garth Wade M.D. Active eye Onset: 11/29/2016 Primary open angle glaucoma of right Garth Wade M.D. Active eye Onset: 08/19/2015 Presence of intraocular lens Garth Wade M.D. Active Onset: 08/19/2015 Primary open-angle glaucoma, severe Garth Wade M.D. Active stage Onset: 08/19/2015 Type 2 diabetes mellitus Garth Wade M.D. Active Family History Date Family Member(s) Problem(s) Comments General Cataract father and siblings Social History Type Date Description Comments Marital Status Legal Status: Occupation Sales Advisor retired ETOH Use Denies alcohol use Smoking Patient has never smoked Recreational Drug Use Denies Drug Use Daily Caffeine Consumes on average 2 cups of hot tea per day Allergies, Adverse Reactions, Alerts Date Description Reaction Status Severity Comments 01/12/2015 Lipitor active Medications Medication Date Status Form Strength Qnty SIG Indications Ordering Provider Brimonidine 06/25/ Active Solution 0.2% 45ml 1 drop E11.9 Garth Melissa 2016 both eyes [place], twice a M.D. day Chlorthalidone 01/31/ Active Tablets 25mg Garth Santiago 2014 [place], M.D. Pilocarpine HCL 01/30/ Active Solution 4% 45unit 1 drop Garth Santiago 2014 s both eyes Arleo, 4 times M.D. daily Travatan Z 01/12/ Active Solution 0.004% 10unit instill 1 Garth Santiago 2014 s drop into Arleo, both eyes M.D. at bedtime Symbicort / Active Aerosol 160-4.5mcg Funk, 0000 /Act Marly M.D. Simvastatin / Active Tablets 10mg Take 1 Unknown 0000 Tablet By Mouth At Bedtime Cialis / Active Tablets 2.5mg Funk, 0000 Marly M.D. Cyanocobalamin / Active Unknown 0000 Metformin HCL ER 00/ Active Unknown 0000 Lisinopril / Active Unknown 0000 Tamsulosin HCL / Active Capsules 0.4mg Unknown 0000 Cpap / Active N/A N/A at Unknown 0000 bedtime Oxygen 00/ Active 2 LPM Unknown 0000 Aspirin / Active Tablets 81mg Unknown 0000 Travoprost 02/09/ Hx Solution 0.004% 1 drop Iris Santiago 2016 - both eyes [place], 06/24/ every O.D. 2017 night Brimonidine 01/30/ Hx Solution 0.15% 15unit instill 1 Garth Melissa 2014 - s drop into Arleo, 02/12/ both eyes M.D. 2018 twice a day Januvia / Hx Tablets 100mg Unknown 0000 - 2014 Results Description No Information Procedures Date CPT Code Description Status 06/25/2017 79315 Est Patient Intermediate Exam Completed 05/31/2017 68058 Patient No Show For Appt Completed 11/29/2016 26712 Scanning Computerized Ophthalmic Diagnostic Imag Completed Posterior Seg On 11/29/2016 64127 Visual Field Exam Extended Completed 11/29/2016 13296 Est Patient Comprehensive Exam Completed 02/24/2016 20113 Est Patient Intermediate Exam Completed 08/19/2015 98206 Est Patient Comprehensive Exam Completed 08/19/2015 62789 Visual Field Exam Extended Completed 08/19/2015 90025 Fundus Photography With Interpretation And Report Completed 01/31/2015 55232 Est Patient Intermediate Exam Completed 08/02/2014 66647 Fundus Photography With Interpretation And Report Completed 08/02/2014 42481 Visual Field Exam Extended Completed 08/02/2014 55690 Est Patient Comprehensive Exam Completed 01/22/2014 16080 Est Patient Intermediate Exam Completed 09/15/2013 21994 Visual Field Exam Extended Completed 09/15/2013 73638 Est Patient Intermediate Exam Completed 04/17/2013 51852 Trabeculoplasty By Laser Surgery Completed 04/09/2013 11617 Trabeculoplasty By Laser Surgery Completed 02/27/2013 17616 Trabeculoplasty By Laser Surgery Completed 02/20/2013 52128 Trabeculoplasty By Laser Surgery Completed 01/23/2013 79128 Est Patient Intermediate Exam Completed 06/03/2012 75380 Visual Field Exam Extended Completed 06/03/2012 08049 Est Patient Comprehensive Exam Completed 12/03/2011 28177 Est Patient Intermediate Exam Completed 05/31/2011 83100 Est Patient Intermediate Exam Completed 03/01/2011 26963 Est Patient Comprehensive Exam Completed 03/01/2011 47236 Visual Field Exam Extended Completed 03/01/2011 18545 Fundus Photography With Interpretation And Report Completed 08/29/2010 71693 Est Patient Intermediate Exam Completed 02/24/2010 81469 Scanning Laser W/Interp And Report Completed 02/24/2010 81367 Est Patient Comprehensive Exam Completed 01/03/2010 36138 Visual Field Exam Intermediate Completed 08/26/2009 05956 Visual Field Exam Extended Completed 08/26/2009 81499 Est Patient Intermediate Exam Completed 04/26/2009 84714 Pachymetry Completed 04/26/2009 34965 Est Patient Intermediate Exam Completed 12/27/2008 43718 Fundus Photography With Interpretation And Report Completed 12/27/2008 63818 Est Patient Intermediate Exam Completed 08/27/2008 02531 Visual Field Exam Extended Completed 08/27/2008 36716 Est Patient Intermediate Exam Completed 07/22/2008 87670 Est Patient Intermediate Exam Completed 06/18/2008 63911 Visual Field Exam Extended Completed 06/09/2008 66329 Est Patient Intermediate Exam Completed 06/02/2008 29775 Est Patient Intermediate Exam Completed 06/02/2008 69622 Scanning Laser W/Interp And Report Completed 02/25/2008 60644 Est Patient Intermediate Exam Completed 08/22/2007 15680 Visual Field Exam Extended Completed 08/22/2007 72391 Est Patient Intermediate Exam Completed 04/22/2007 18080 Determination Of Refractive State Completed 04/22/2007 94665 Est Patient Comprehensive Exam Completed 10/22/2006 26332 Est Patient Intermediate Exam Completed 08/05/2006 81862 Visual Field Exam Extended Completed 08/05/2006 55955 Scanning Laser W/Interp And Report Completed 04/19/2006 25662 Fundus Photography With Interpretation And Report Completed 04/19/2006 65658 Est Patient Comprehensive Exam Completed 10/19/2005 21775 Est Patient Intermediate Exam Completed 08/07/2005 07050 Scanning Laser W/Interp And Report Completed 08/07/2005 94131 Scanning Laser W/Interp And Report Completed 08/07/2005 82597 Visual Field Exam Extended Completed 04/17/2005 27853 Est Patient Intermediate Exam Completed 10/20/2004 92429 Est Patient Intermediate Exam Completed 08/07/2004 96925 Visual Field Exam Intermediate Completed 06/09/2004 78676 Fundus Photography With Interpretation And Report Completed 05/29/2004 80575 Patient No Show For Appt Completed 04/17/2004 84678 Est Patient Intermediate Exam Completed 03/15/2004 33217 Visual Field Exam Intermediate Completed 03/09/2004 51386 Scanning Laser W/Interp And Report Completed 03/09/2004 68681 Est Patient Intermediate Exam Completed 02/28/2004 68381 Rescheduled Appointment Completed Encounters Type Date Location Provider CPT E/M Dx Office Visit 05/26/2013 9:00a Garth Wade MD, Garth Wade, [address] 365.11 vicki Tafoya 365.73 Office Visit 09/21/2008 12:45p Garth Wade MD, Garth Wade M.D. 31928 365.11 pc Office Visit 06/25/2008 11:15a Garth Wade MD, Virginie Badillo O.D. 30410 365.11 pc Office Visit 06/18/2008 10:45a Garth Wade MD, Garth Wade M.D. 83551 365.11 pc Office Visit 01/12/2005 1:45p Garth Wade MD, Garth Wade M.D. 89797 365.01 pc Office Visit 12/01/2004 2:15p Garth Wade MD, Garth Wade M.D. 36593 365.01 pc Office Visit 07/21/2004 12:15p Garth Wade MD, Garth Wade M.D. 49165 365.01 pc Office Visit 06/09/2004 9:45a Garth Wade MD, Garth Wade M.D. 46454 365. Plan of Care 02/13/2018 - Garth Wade M.D.[id number] Primary open-angle glaucoma, right eye, severe stageComments:Smoking can increase the risk of developing or worsening any eye related disease, as well as affect your overall health. If you are a smoker, we strongly recommend that you quit.If you are not a smoker, we strongly recommend that you do not start. Your Glaucoma is stable at this time in your right eye. Your eye pressure is within an acceptable range, and your testing does not show any further deterioration at this time. Please continue your treatment as directed and keep follow up appointments.Follow up:6 Month Follow Up IOP Check At your next visit, we are not planning to dilate your eyes. However, if you have any changes in your vision or new symptoms, there are certain situations that require us to dilate your eyes. If Dr. Wade requests any additional testing, that may require extra time. If you have any questions before your next appointment, please call our office at .[phone] Primary open-angle glaucoma, left eye, moderate stageComments: Your glaucoma is stable at this time in your left eye.Your eye pressure is within an acceptable range, and your testing does not show any further deterioration at this time. Please continue your treatment as directed and keep follow up appointments.E11.9 Type 2 diabetes mellitus without complicationsComments:You have diabetes. I do not detect any changes in both of your retinas from diabetes at this time. Proper control of your diabetes is important for the health of your eyes. Changes in your eyes from diabetes can happen without symptoms, so it is important that you have your eyes examined. Dr. Wade has sent a report to your primary care doctor, letting them know there is no damage from the Diabetes in your eyes.Z96.1 Presence of intraocular lensComments:The artificial lens implants in both eyes appear to be stable at this time.
[2018-02-13 19:46] LABS: ABS Basophils 0 10^3/ul (0-0.2); ABS Eosinophils 0.3 10^3/ul (0-0.6); ABS Monocytes 0.9 10^3/ul (0-0.8); ABS Neutrophils 5.5 10^3/ul (1.5-7.7); ABS Nucleated RBC 0 10^3/ul; Eosinophil % 3.1 % (0-6); Hematocrit 36 % (42-52); Lymphocyte % 30.3 % (25-47); Mean Corpuscular HGB Conc 33 g/dl (31-36); Mean Corpuscular Hemoglobin 32 pg (27-31); Mean Corpuscular Volume 96 fL (80-94); Mean Platelet Volume 7.6 um3 (7.4-10.4); Nucleated Red Blood Cells % 0; Platelet Count 219 10^3/ul (150-450); Red Blood Count 3.75 10^6/ul (4.0-5.4); Red Cell Distribution Width 14 % (10.5-15); White Blood Count 9.8 10^3/ul (3.5-10.8)
[2018-02-13 20:08] LABS: EGFR Non-African American 49.6 (>60)
[2018-02-13] MEDS ORDERED: Sodium Polystyrene ORAL.SOL* 15 GM/60 ML BTL PO ONE (21:13)
[2018-02-13 21:40] VITALS: BP 116/58
--- NOTE | 2018-02-14 02:21 | ED ---
ISu Gabriel, scribed for Kale Cuellar MD on 02/13/18 at 2123 . Complex/Multi-Sys Presentation - HPI Summary HPI Summary: This patient is a 82 year old M [place] [facility] [place] sent in by PCP for an elevated potassium. The patient rates the pain 0/10 in severity. Patient denies SOB, CP, numbness, weakness, n/v, and CAMEJO. Pt was admitted 4 months ago for the same issue accompanied by an abnormal EKG, at this time he was supplementing potassium. Pt takes lasixs for chronic renal insufficiency. I reviewed past potassium levels of 6.4, 6.8, and 6.0. - History Of Current Complaint Chief Complaint: EDGeneral Time Seen by Provider: 02/13/18 20:49 Hx Obtained From: Patient Onset/Duration: Still Present Timing: Constant Severity Currently: Moderate Severity Initially: Moderate Location: Negative Associated Signs And Symptoms: Negative: Nausea, Vomiting - Allergies/Home Medications Allergies/Adverse Reactions: Allergies Allergy/AdvReac Type Severity Reaction Status Date / Time MS Atorvastatin AdvReac Intermediate GI Upset Verified 03/08/14 08:18 [From Lipitor] PMH/Surg Hx/FS Hx/Imm Hx Endocrine/Hematology History: Reports: Hx Diabetes Cardiovascular History: Reports: Hx Congestive Heart Failure, Hx Coronary Artery Disease, Hx Hypercholesterolemia, Hx Hypertension, Hx Valvular Heart Disease Denies: Hx Angina, Hx Myocardial Infarction, Hx Pacemaker/ICD Respiratory History: Reports: Hx Asthma History: Reports: Hx Chronic Renal Failure Sensory History: Reports: Hx Contacts or Glasses, Hx Hearing Aid Opthamlomology History: Reports: Hx Contacts or Glasses Psychiatric History: Denies: Hx Panic Disorder - Surgical History Surgery Procedure, Year, and Place: CATARACTS,. LASER EYE SURGERY FOR GLAUCOMA. SINUS SURGERY. RT AND LT KNEE REPLACEMENTS Infectious Disease History: No Infectious Disease History: Denies: Traveled Outside the [place] in Last 30 Days - Family History Known Family History: Positive: Cardiac Disease, Hypertension - Social History Lives: With Family Alcohol Use: None Substance Use Type: Reports: None Smoking Status (MU): Never Smoked Tobacco Have You Smoked in the Last Year: No Review of Systems Negative: Chest Pain Negative: Shortness Of Breath Negative: Vomiting, Nausea Neurological: Negative - numbness Negative: Headache, Weakness All Other Systems Reviewed And Are Negative: Yes Physical Exam - Summary Physical Exam Summary: Appearance: Well appearing, no pain distress Skin: warm, dry, reflects adequate perfusion Head/face: normal Eyes: EOMI, ALLEN ENT: dry mucous membranes Neck: supple, non-tender Respiratory: CTA, breath sounds present Cardiovascular: RRR, pulses symmetrical Abdomen: non-tender, soft Bowel Sounds: present Musculoskeletal: strength/ROM intact, Trace LE edema, Neuro: normal, sensory motor intact, A&Ox3 Triage Information Reviewed: Yes Vital Signs On Initial Exam: Initial Vitals Temp Pulse Resp BP Pulse Ox 99.1 F 75 20 128/69 98 02/13/18 17:42 02/13/18 17:42 02/13/18 17:42 02/13/18 17:42 02/13/18 17:42 Vital Signs Reviewed: Yes Diagnostics - Vital Signs Vital Signs Temp Pulse Resp BP Pulse Ox 02/13/18 19:45 100.0 F 66 20 139/69 02/13/18 17:42 99.1 F 75 20 128/69 98 - Laboratory Lab Results: Lab Results 02/13/18 02/13/18 Range/Units 19:38 19:38 WBC 9.8 (3.5-10.8) 10^3/ul RBC 3.75 L (4.0-5.4) 10^6/ul Hgb 12.0 L (14.0-18.0) g/dl Hct 36 L (42-52) % MCV 96 H (80-94) fL MCH 32 H (27-31) pg MCHC 33 (31-36) g/dl RDW 14 (10.5-15) % Plt Count 219 (150-450) 10^3/ul MPV 7.6 (7.4-10.4) um3 Neut % (Auto) 56.8 (38-83) % Lymph % (Auto) 30.3 (25-47) % [place] % (Auto) 9.4 H (0-7) % Eos % (Auto) 3.1 (0-6) % Baso % (Auto) 0.4 (0-2) % Absolute Neuts (auto) 5.5 (1.5-7.7) 10^3/ul Absolute Lymphs (auto) 3.0 (1.0-4.8) 10^3/ul Absolute Monos (auto) 0.9 H (0-0.8) 10^3/ul Absolute Eos (auto) 0.3 (0-0.6) 10^3/ul Absolute Basos (auto) 0 (0-0.2) 10^3/ul Absolute Nucleated RBC 0 10^3/ul Nucleated RBC % 0 Sodium 139 (139-145) mmol/L Potassium 6.4 H* (3.5-5.0) mmol/L Chloride 110 (101-111) mmol/L Carbon Dioxide 22 (22-32) mmol/L Anion Gap 7 (2-11) mmol/L BUN 27 H (6-24) mg/dL Creatinine 1.37 H (0.67-1.17) mg/dL Est GFR ( Amer) 63.8 (>60) Est GFR (Non-Af Amer) 49.6 (>60) BUN/Creatinine Ratio 19.7 (8-20) Glucose 86 (70-100) mg/dL Calcium 9.8 (8.6-10.3) mg/dL Result Diagrams: 02/13/18 19:38 02/13/18 19:38 Lab Statement: Any lab studies that have been ordered have been reviewed, and results considered in the medical decision making process. - EKG 19:18 Cardiac Rate: NL EKG Rhythm: Sinus Rhythm - at 67 BPM EKG Interpretation: single PVC, LAD, biphasic T waves in v4-v6, no peak T waves Re-Evaluation - Re-Evaluation First Eval Re-Evaluation Time: 21:22 Change: Unchanged Comment: I discussed discharge with the patient. Complex Multi-Symp Course/Dx Course Of Treatment: Pt with recent hospital admission for same. Cr ~1.3. K appears to be chronically elevated. No EKG changes. Pt with no complaints or reason for acidosis. Not taking K+ supplements but does have a lot of dietary K+ . D/W Hosptialist who agreed at pt discharge. Did give a dose of Kayexalate to be repeated in am. F/U closely PMD, repeat K in 1-2 days. Also given referral to nephrology. - Diagnoses Differential Diagnoses/HQI/PQRI: Metabolic Abnormality Provider Diagnoses: Chronic hyperkalemia - Physician Notifications Discussed Care Of Patient With: Brien Parker Time Discussed With Above Provider: 21:10 Instructed by Provider To: Other - We discussed patient care with Dr. Parker and he agrees with the discharge of the patient. Discharge - Sign-Out/Discharge Documenting (check all that apply): Discharge - Discharge Plan Condition: Good Disposition: HOME Prescriptions: Sodium Polystyrene ORAL.MINERVA* [Kayexalate ORAL.MINERVA*] 15 gm PO ONCE #1 btl Patient Education Materials: Hyperkalemia (ED) Referrals: Marly Funk MD [Primary Care Provider] - Garth Berman MD [Medical Doctor] - Additional Instructions: Avoid potassium containing foods such as banana and dates. Stay well hydrated. Call for a follow up appt tomorrow -- this is likely chronic in nature. Have your doctor recheck the potassium in 24-48hrs. You likely are at a higher level every day. Call for an appt with the director translation. - Billing Disposition and Condition Condition: GOOD Disposition: HOME The documentation as recorded by the Su acevedo Gabriel accurately reflects the service I personally performed and the decisions made by me, Kale Cuellar MD.
== END 2018-02-13 21:39 | disposition home or self-care (01) ==
LOC: ED 17:40
DX: E87.5 Hyperkalemia (principal); E11.9 Type 2 diabetes mellitus without complications; Z79.84 Long term (current) use of oral hypoglycemic drugs; I25.10 Atherosclerotic heart disease of native coronary artery without angina pectoris; I11.0 Hypertensive heart disease with heart failure; E78.00 Pure hypercholesterolemia, unspecified; J45.909 Unspecified asthma, uncomplicated; E11.22 Type 2 diabetes mellitus with diabetic chronic kidney disease; I12.9 Hypertensive chronic kidney disease with stage 1 through stage 4 chronic kidney disease, or unspecified chronic kidney disease; N18.9 Chronic kidney disease, unspecified; Z96.653 Presence of artificial knee joint, bilateral; Z88.8 Allergy status to other drugs, medicaments and biological substances
CPT/HCPCS: 36415; 80048; 85025; 93005; 99282; A9270-GY

== ENCOUNTER 2018-02-23 13:15 | Emergency (ER) | payer MEDICARE, MEDICAID ==
[2018-02-23 13:32] VITALS: BP 134/74
--- NOTE | 2018-02-23 13:39 | UC ---
Ear Complaint HPI - HPI Summary HPI Summary: Thinks tip of hearing aid is stuck in R ear since last night. Denies pain, fever , drainage, or recent URI. Pt tried to get it out with a swab, thinks he pushed it farther in. - History of Current Complaint Stated Complaint: FB IN EAR Time Seen by Provider: 02/23/18 13:25 Hx Obtained From: Patient Onset/Duration: Sudden Onset Severity Initially: Mild Severity Currently: Mild Pain Intensity: 5 Aggravating Factors: FB Alleviating Factors: Nothing Associated Signs/Symptoms: Positive: Hearing Loss. Negative: Discharge, URI Symptoms - Allergies/Home Medications Allergies/Adverse Reactions: Allergies Allergy/AdvReac Type Severity Reaction Status Date / Time atorvastatin Allergy GI Upset Verified 02/23/18 13:33 PMH/Surg Hx/FS Hx/Imm Hx Endocrine History: Diabetes Cardiovascular History: Hypertension Respiratory History: Asthma - Surgical History Surgical History: Yes Surgery Procedure, Year, and Place: CATARACTS,. LASER EYE SURGERY FOR GLAUCOMA. SINUS SURGERY. RT AND LT KNEE REPLACEMENTS - Family History Known Family History: Positive: Cardiac Disease, Hypertension - Social History Alcohol Use: None Substance Use Type: None Smoking Status (MU): Never Smoked Tobacco Have You Smoked in the Last Year: No - Immunization History Most Recent Influenza Vaccination: 2016 Most Recent Pneumonia Vaccination: 2016 Review of Systems Constitutional: Negative Skin: Negative Eyes: Negative ENT: Other - FB ear Respiratory: Negative Cardiovascular: Negative Gastrointestinal: Negative Genitourinary: Negative Motor: Negative Neurovascular: Negative Musculoskeletal: Negative Neurological: Negative Psychological: Negative Is Patient Immunocompromised?: No All Other Systems Reviewed And Are Negative: Yes Physical Exam Triage Information Reviewed: Yes Appearance: Well-Appearing Vital Signs: Initial Vital Signs Temp 97.3 F 02/23/18 13:29 Pulse 71 02/23/18 13:29 Resp 18 02/23/18 13:29 BP 134/74 02/23/18 13:29 Pulse Ox 98 02/23/18 13:29 Vital Signs Reviewed: Yes Eye Exam: Normal Eyes: Positive: Conjunctiva Clear ENT: Positive: TMs normal, Other - R EAC FB -- removed with alligator forceps. Soft silicone cover to hearing aid, removed in one piece, no injury in canal noted. Neck exam: Normal Neck: Positive: Supple, Nontender Respiratory Exam: Normal Respiratory: Positive: Chest non-tender, Lungs clear, Normal breath sounds Cardiovascular Exam: Normal Cardiovascular: Positive: RRR, No Murmur Neurological Exam: Normal Neurological: Positive: Alert Psychological Exam: Normal Skin Exam: Normal Ear Complaint Course/Dx - Differential Dx/Diagnosis Provider Diagnoses: R ear FB removal Discharge - Sign-Out/Discharge Documenting (check all that apply): Discharge - Discharge Plan Condition: Stable Disposition: HOME Patient Education Materials: Ear Foreign Body (ED) Referrals: Marly Funk MD [Primary Care Provider] - Additional Instructions: The soft hearing aid cover did not appear to cause any damage to your ear canal. You do not need to take any special precautions now that it is out. - Billing Disposition and Condition Condition: STABLE Disposition: HOME
== END 2018-02-23 13:45 | disposition home or self-care (01) ==
LOC: UCEAST 13:15
DX: Z46.1 Encounter for fitting and adjustment of hearing aid (principal); Z88.8 Allergy status to other drugs, medicaments and biological substances
CPT/HCPCS: 69200; 99212; G0463